=== PATIENT | male | born 1980 | race Caucasian/White ===

== ENCOUNTER → 2020-11-27 | Day surgery (SDC) | payer OTHER ==
[~2020-11-27] MED LIST: AMOXICILLIN500 MG PO; MOTRIN600 MG PO; PERCOCET 5-3251 EACH PO; PRILOSEC20 MG PO
[2020-11-27 11:02] LABS: BASOPHIL 0.3 % (0-2); EOSINOPHIL 0.5 % (0-5); HCT 36.8 % (42.0-52.0); HGB 11.4 g/dl (13.2-18.0); LYMPHOCYTE 26.1 % (15-48); MCH 27.7 pg (25.0-31.0); MCV 89.3 fL (78.0-100.0); MONOCYTE 8.5 % (0-12); MPV 10.7 fL (6.0-9.5); NEUTROPHIL 64.3 % (41-80); NRBC 0; PLT 323 K/uL (150-400); RBC 4.12 M/uL (4.70-6.00); RDW 14.6 % (11.5-14.0); WBC 6.6 K/uL (4.0-10.5)
== END | disposition home or self-care (01) ==
LOC: FAS 09:57
PROVIDERS: Oral & Maxillofacial Surgery
DX: K02.63 Dental caries on smooth surface penetrating into pulp (principal); K21.9 Gastro-esophageal reflux disease without esophagitis; F41.9 Anxiety disorder, unspecified; Z79.899 Other long term (current) drug therapy
CPT/HCPCS: 36415; 85025; J1100; J1170; J2250; J2270; J2405; J2704; J3010; J7120